=== PATIENT | male | born 1985 | race Caucasian/White ===

== ENCOUNTER → 2020-03-22 | Outpatient (CLI) | payer BC, OTHER | LOC: EROP 10:33 | DX: Z20.822 Contact with and (suspected) exposure to COVID-19 (principal) | CPT/HCPCS: U0002 ==

== ENCOUNTER → 2020-06-10 | Outpatient (CLI) | payer BC, OTHER ==
[2020-06-10 12:47] LABS: HEMOGLOBIN 15.4 gm/dl (14.0-17.5); RED BLOOD COUNT 5.17 M/UL (4.20-5.50); WHITE BLOOD COUNT 6.1 K/UL (4.5-11.0)
[2020-06-10 13:07] LABS: BUN/CREATININE RATIO 20 (0-10)
[2020-06-11 10:13] LABS: CREATININE, URINE 166.4 mg/dL (Not Estab.)
== END ==
LOC: LAB 10:12
PROVIDERS: Physician Assistant
DX: E11.9 Type 2 diabetes mellitus without complications (principal); E78.2 Mixed hyperlipidemia; F34.1 Dysthymic disorder; F41.9 Anxiety disorder, unspecified
CPT/HCPCS: 36415; 80053; 80061; 82043; 82570; 82607; 82746; 83036; 85025

== ENCOUNTER 2020-10-15 15:26 | Emergency (ER) | payer BC | END 2020-10-15 18:03 | disposition home or self-care (01) | LOC: ER1 15:26 | DX: U07.1 COVID-19 (principal) | CPT/HCPCS: 71045; 99284; U0002 ==

== ENCOUNTER → 2020-10-24 | Outpatient (CLI) | payer BC ==
[2020-10-24 20:56] LABS: HEMOGLOBIN 15.5 gm/dl (14.0-17.5); RED BLOOD COUNT 5.16 M/UL (4.20-5.50); WHITE BLOOD COUNT 4.4 K/UL (4.5-11.0)
[2020-10-24 21:22] LABS: BUN/CREATININE RATIO 14 (0-10)
[2020-10-26 11:14] LABS: CREATININE, URINE 226.9 mg/dL (Not Estab.)
== END ==
LOC: LAB 20:12
PROVIDERS: Internal Medicine
DX: E11.9 Type 2 diabetes mellitus without complications (principal); F34.1 Dysthymic disorder; G47.33 Obstructive sleep apnea (adult) (pediatric); R53.81 Other malaise; R53.83 Other fatigue
CPT/HCPCS: 80053; 80061; 82043; 82570; 82607; 82746; 83036; 84681; 85025; 86140